=== PATIENT | male | born 1980 | race Caucasian/White ===

== ENCOUNTER 2020-05-18 08:31 | Emergency (ER) | payer OTHER ==
[~2020-05-18] VITALS: Ht 195.6 cm; Wt 93.2 kg
[2020-05-18 08:40] VITALS: BP 131/85
[2020-05-18] MEDS ORDERED: ALBU6.7H9 INH (08:48)
[2020-05-18] MEDS ORDERED: BENZ-38 PO (08:48)
[2020-05-18] MEDS ORDERED: AZIT250T2 PO (08:48)
--- NOTE | 2020-05-18 09:05 | NUR ---
Patient seen and assessed by provider.
== END 2020-05-18 09:07 | disposition home or self-care (01) ==
LOC: ER 08:32
DX: R05 Cough (principal); R06.02 Shortness of breath; M79.18 Myalgia, other site; Z20.828 Contact with and (suspected) exposure to other viral communicable diseases; Z60.2 Problems related to living alone; Z79.899 Other long term (current) drug therapy
CPT/HCPCS: 36415; 99283